=== PATIENT | male | born 1980 | race Two or more races ===

== ENCOUNTER 2016-07-03 18:17 | Emergency (ER) | payer MEDICAID ==
[~2016-07-03] VITALS: Ht 167.6 cm; Wt 78.0 kg
[2016-07-03 18:32] VITALS: BP 124/65
== END 2016-07-03 21:17 | disposition home or self-care (01) ==
LOC: ER 18:18
DX: R20.9 Unspecified disturbances of skin sensation (principal); R51 Headache
CPT/HCPCS: 70450; 99284; A4606; Z7610

== ENCOUNTER 2017-06-29 19:52 | Inpatient (IN) | payer MEDICAID ==
[~2017-06-29] VITALS: Ht 167.6 cm; Wt 83.9 kg
--- NOTE | 2017-06-29 20:12 | NUR ---
PT BIBSELF C/O LLQ ABD PAIN X 12PM TODAY. -N/V LAST BM 1 HR GLOVE OPERATOR. PT AMBULATORY TO ER BED 9 PT AOX3 RR EVEN AND UNLABORED. NO SOB NOTED. NAD NOTED. NO NVD AT THIS TIME. PT GOWNED AND PLACED ON MONITOR WAITING FOR MD GERMAIN. URINE COLLECTED.
--- NOTE | 2017-06-29 20:18 | NUR ---
PAC JAZ AT BEDSIDE
[2017-06-29] MEDS ORDERED: IV NS 0.9% 1,000 ML BAG IV ONE ×2 (20:30→22:00)
[2017-06-29] MEDS ORDERED: ONDANSETRON HCL/PF 4 MG/2 ML VIAL IVP ONE (20:30)
[2017-06-29] MEDS ORDERED: KETOROLAC TROMETHAMINE INJ 30 MG/ML VIAL IV ONE (20:30)
[2017-06-29] MEDS ORDERED: MORPHINE SULFATE INJ 2 MG/ML DISP.SYRIN IV ONE (20:30)
[2017-06-29] MEDS ORDERED: KETOROLAC TROMETHAMINE INJ 30 MG/ML VIAL ONE (20:33)
[2017-06-29] MEDS ORDERED: ONDANSETRON HCL/PF 4 MG/2 ML VIAL ONE (20:33)
[2017-06-29] MEDS ORDERED: MORPHINE SULFATE INJ 4 MG/ML DISP.SYRIN ONE (20:34)
--- NOTE | 2017-06-29 20:34 | NUR ---
PT TO CT.
[2017-06-29 20:47] LABS: APPEARANCE,URINE CLEAR (CLEAR); BILIRUBIN,URINE NEGATIVE (NEGATIVE); BLOOD, URINE NEGATIVE Ery/uL (NEGATIVE); COLOR,URINE YELLOW (YELLOW); KETONES,URINE NEGATIVE (NEGATIVE); LEUKOCYTE ESTERASE ,URINE NEGATIVE (NEGATIVE); NITRITE, URINE NEGATIVE (NEGATIVE); PROTEIN,URINE NEGATIVE (NEGATIVE); UGLUCOSE NEGATIVE (NEGATIVE); UROBILINOGEN,URINE 0.2 EU/dL (0.2)
[2017-06-29 20:55] LABS: CALCIUM, SERUM 8.7 mg/dL (8.5-10.1); POTASSIUM 3.6 mmol/L (3.5-5.1)
[2017-06-29 21:14] LABS: EOSINOPHILS % (AUTO) 0.4 % (0.0-6.0); HEMATOCRIT 43 % (39-51); HEMOGLOBIN 14.8 g/dL (13.5-17.5); LYMPHOCYTES % (AUTO) 7.9 % (20.0-44.0); MEAN CORPUSCULAR HEMOGLOBIN 30 PG (26.0-33.0); MEAN CORPUSCULAR HGB CONC 35 g/dl (31.0-36.0); MEAN CORPUSCULAR VOLUME 86 fL (80-96); MONOCYTES # (AUTO) 0.3 /CMM (0.1-1.30); MONOCYTES % (AUTO) 2.9 % (2.0-12.0); NEUTROPHILS # (AUTO) 10.8 /CMM (1.8-8.9); NEUTROPHILS % (AUTO) 88.8 % (43.0-81.0); PLATELET COUNT (AUTO) 167 /CMM (150-450); RED BLOOD CELL COUNT(AUTO) 4.96 MIL/uL (4.5-6.0); WHITE BLOOD COUNT (AUTO) 12.2 K/uL (4.3-11.0)
--- NOTE | 2017-06-29 21:57 | NUR ---
CALLED DR. OSORIO INTELLIGENCE MANAGER AT [phone]. UNABLE TO REACH. LEFT VOICEMAIL TO CALL BACK.
[2017-06-29] MEDS ORDERED: PIPERACILLIN /TAZOBACTAM 3.375 G in IV D5W 50 ML IV ONE (22:00)
--- NOTE | 2017-06-29 22:02 | NUR ---
CALLED NURSE SUP FOR MED SURG BED
--- NOTE | 2017-06-29 22:04 | NUR ---
PAGED EPIC FOR PANEL
--- NOTE | 2017-06-29 22:16 | NUR ---
206-2 [facility]
--- NOTE | 2017-06-29 22:47 | NUR ---
LAB AT BEDSIDE FOR BLOOD CX
--- NOTE | 2017-06-29 22:53 | NUR ---
CALLED DR. OSORIO ELECTRICAL SYSTEMS ENGINEER AT [phone]. UNABLE TO REACH. LEFT VOICEMAIL TO CALL BACK.
[2017-06-29] MEDS ORDERED: PIPERACILLIN /TAZOBACTAM 3.375 G VIAL IV ONE (23:09)
[2017-06-29 23:21] LABS: INR 0.98 (0.87-1.13)
--- NOTE | 2017-06-30 00:07 | NUR ---
REPORT GIVEN TO ANNABELLA SHRESTHA FOR LUCIANA.
[2017-06-30 00:13] VITALS: BP 112/62
--- NOTE | 2017-06-30 00:13 | NUR ---
MS/RN NOTES RECEIVED PT. FROM ER VIA NATALIA. PT. IS AWAKE, ALERT AND ORIENTED X4. BREATHING EVEN AND UNLABORED ON ROOM AIR. NO SOB, RESPIRATORY DISTRESS NOTED AT THIS TIME. PT. COMPLAINING OF LEFT LOWER QUADRANT ABDOMINAL PAIN 5/10 AND STATES IT HAS REALLY IMPROVED SINCE RECEIVING PAIN MEDICATION. ORIENTED PT. TO ROOM. PT. WITH LEFT AC 18 GAUGE IV SALINE LOCK PRESENT, PATENT AND INTACT. EDUCATED PT. THAT HE WILL BE NPO, PT. VERBALIZED UNDERSTANDING. BED LOCKED AND IN LOWEST POSITION, SIDE RAILS UP X2, CALL LIGHT WITHIN REACH, WILL CONTINUE TO MONITOR.
[2017-06-30] MEDS: IV NS 0.9% 1,000 ML IV PRN ×2 (00:39→17:48)
[2017-06-30] MEDS ORDERED: MAGNESIUM HYDROXIDE 30 ML UDC PO PRN (02:30)
[2017-06-30] MEDS ORDERED: Z GUARD REMEDY 2 OZ OINT TP PRN (02:30)
[2017-06-30] MEDS ORDERED: ACETAMINOPHEN 325 MG TABLET PO PRN (02:30)
[2017-06-30] MEDS ORDERED: DEXTROSE 50%-WATER 50 ML DISP.SYRIN IV PRN (02:30)
[2017-06-30] MEDS ORDERED: HYDROCODONE/APAP 5/325MG 1 EACH TABLET PO PRN (02:30)
[2017-06-30] MEDS ORDERED: ONDANSETRON HCL/PF 4 MG/2 ML VIAL IVP PRN (02:30)
[2017-06-30] MEDS ORDERED: ZOLPIDEM TARTRATE 5 MG TABLET PO PRN (02:30)
[2017-06-30 04:00] VITALS: BP 98/55
[2017-06-30] MEDS ORDERED: PIPERACILLIN /TAZOBACTAM 3.375 G VIAL IV ONE (05:42)
[2017-06-30] MEDS: BLOOD SUGAR DIAGNOSTIC 1 EACH STRIP IN SCH ×3 (06:00→17:02)
[2017-06-30] MEDS: PIPERACILLIN /TAZOBACTAM 3.375 G in IV NS 0.9% 50 ML IV SCH ×3 (06:22→17:02)
--- NOTE | 2017-06-30 06:30 | NUR ---
MS/RN NOTES UNABLE TO PERFORM 0600 ACCUCHECK ORDERED. GLUCOMETER'S NOT WORKING HOSPITAL WIDE. PT. HAS BMP ORDERED WITH AM LABS. WILL ENDORSE TO DAYSHIFT NURSE TO ASSESS PT. GLUCOSE LEVEL WHEN LABS RESULT. NO S/S OF HYPO/HYPERGLYCEMIA NOTED AT THIS TIME. WILL CONTINUE TO MONITOR.
--- NOTE | 2017-06-30 06:42 | NUR ---
MS/RN NOTES PT. IS LYING IN BED RESTING. BREATHING EVEN AND UNLABORED ON ROOM AIR. NO SOB, RESPIRATORY DISTRESS OR COMPLAINTS OF PAIN NOTED AT THIS TIME. PT. WITH LEFT AC 18 GAUGE PERIPHERAL IV PRESENT, PATENT AND INTACT ADMINISTERING TO PT. NS @ 75 ML/HR. ALL PT. NEEDS MET. BED LOCKED AND IN LOWEST POSITION, SIDE RAILS UP X2, CALL LIGHT WITHIN REACH, WILL ENDORSE TO DAYSHIFT NURSE FOR CONTINUITY OF CARE.
[2017-06-30 06:53] LABS: CALCIUM, SERUM 7.7 mg/dL (8.5-10.1); CREATININE 0.8 mg/dL (0.6-1.3); MAGNESIUM 2.1 mg/dL (1.8-2.4); PHOSPHORUS 3.3 mg/dL (2.5-4.9); POTASSIUM 3.8 mmol/L (3.5-5.1)
[2017-06-30 07:00] LABS: BASOPHILS % (AUTO) 0.2 % (0.0-2.0); EOSINOPHILS % (AUTO) 0.6 % (0.0-6.0); HEMATOCRIT 39 % (39-51); HEMOGLOBIN 13.4 g/dL (13.5-17.5); LYMPHOCYTES # (AUTO) 1.2 /CMM (0.8-4.8); LYMPHOCYTES % (AUTO) 15.3 % (20.0-44.0); MEAN CORPUSCULAR HEMOGLOBIN 30 PG (26.0-33.0); MEAN CORPUSCULAR HGB CONC 35 g/dl (31.0-36.0); MEAN CORPUSCULAR VOLUME 87 fL (80-96); MONOCYTES # (AUTO) 0.5 /CMM (0.1-1.30); MONOCYTES % (AUTO) 6.1 % (2.0-12.0); NEUTROPHILS # (AUTO) 6.2 /CMM (1.8-8.9); NEUTROPHILS % (AUTO) 77.8 % (43.0-81.0); PLATELET COUNT (AUTO) 157 /CMM (150-450); RDW COEFFICIENT OF VARIATION 14.1 (11.5-15.0); RED BLOOD CELL COUNT(AUTO) 4.47 MIL/uL (4.5-6.0)
--- NOTE | 2017-06-30 07:30 | NUR ---
RN OPEN NOTES RECEIVED REPORT FROM CHILLING HOOD OPERATOR NURSE. PATIENT IS AWAKE IN BED. PATIENT IS ALERT AND ORIENTED TO NAME PLACE AND TIME. NO SIGNS AND SYMPTOMS OF DISTRESS. DENIED PAIN. BED IN LOW POSITION, LOCKED AND TWO SIDE RAILS ARE UP. CALL LIGHT WITHIN REACH FOR SAFETY. WILL CONTINUE TO MONITOR AND ASSESS PATIENT
[2017-06-30 08:00] VITALS: BP 103/51
[2017-06-30] MEDS: PANTOPRAZOLE 40 MG VIAL IV SCH ×2 (08:19→21:38)
--- NOTE | 2017-06-30 14:40 | NUR ---
PAGED DR ZHAO REGARDING ETA TO EVALUATE PATIENT. PENDING REPLY
[2017-06-30 16:00] VITALS: BP 110/65
--- NOTE | 2017-06-30 16:06 | NUR ---
DR ZHAO CALLED BACK. PATIENT NEEDS TO STAY NPO. HE WILL BE HERE LATER ON TONIGHT TO EVALUATE PATIENT.
--- NOTE | 2017-06-30 18:31 | NUR ---
RN CLOSING NOTES PATIENT IN IN BED. ALERT AND ORIENTED TO NAME, PLACE AND TIME. FAMILY AT BEDSIDE. NO SIGNS AND SYMPTOMS OF DISTRESS. IV SITE IS INTACT AND PATENT, CURRENTLY RUNNING NS AT 75ML/HR. KEPT PATIENT CLEAN, DRY AND SAFE. NO ACUTE CHANGES DURING MY SHIFT. ALL NURSING CARE ANTICIPATED AND ATTENDED FOR. BED IN LOW POSITION, LOCKED AND TWO SIDE RAILS ARE UP. CALL LIGHT WITHIN REACH FOR SAFETY. WILL ENDORSE TO GYM SUPERVISOR RN FOR LUCIANA.
--- NOTE | 2017-06-30 19:25 | NUR ---
MS/RN NOTES RECEIVED PT. LYING IN BED RESTING. BREATHING EVEN AND UNLABORED ON ROOM AIR. NO SOB, RESPIRATORY DISTRESS OR COMPLAINTS OF PAIN NOTED AT THIS TIME. PT. WITH LEFT FOREARM 20 GAUGE PERIPHERAL IV PRESENT, PATENT AND INTACT ADMINISTERING TO PT. NS @ 75 ML/HR. PER DAYSHIFT NURSE AWAITING EVALUATION BY DR. CECE PIRES. BED LOCKED AND IN LOWEST POSITION, SIDE RAILS UP X2, CALL LIGHT WITHIN REACH, WILL CONTINUE TO MONITOR.
--- NOTE | 2017-06-30 20:16 | NUR ---
MS/RN NOTES SPOKE WITH DR. ZHAO, PER DR. ZHAO NEW ORDERS: "CHANGE IV FLUIDS TO D5 1/2 NS WITH 20MEQ KCL @120ML/HR, CBC AND BMP IN THE MORNING AND PT. IS TO REMAIN STRICT NPO, NO DIET CHANGES ARE TO BE MADE FOR THIS PATIENT". WILL CARRY OUT ORDERS. WILL CONTINUE TO MONITOR.
[2017-06-30 20:20] VITALS: BP 100/40
[2017-06-30] MEDS ORDERED: IV PREMIX D5 1/2NS + KCL 1,000 ML IV ONE (21:16)
[2017-06-30] MEDS: Potassium Chloride 20 MEQ in IV D5/0.45 NACL 1,000 ML IV PRN (21:39)
[2017-07-01] MEDS: BLOOD SUGAR DIAGNOSTIC 1 EACH STRIP IN SCH ×5 (00:21→23:25)
[2017-07-01] MEDS: PIPERACILLIN /TAZOBACTAM 3.375 G in IV NS 0.9% 50 ML IV SCH ×5 (00:21→23:26)
[2017-07-01 06:46] LABS: BASOPHILS % (AUTO) 0.3 % (0.0-2.0); EOSINOPHILS # (AUTO) 0.1 /CMM (0.0-0.7); EOSINOPHILS % (AUTO) 1.1 % (0.0-6.0); HEMATOCRIT 40 % (39-51); HEMOGLOBIN 13.6 g/dL (13.5-17.5); LYMPHOCYTES # (AUTO) 1.2 /CMM (0.8-4.8); LYMPHOCYTES % (AUTO) 16.9 % (20.0-44.0); MEAN CORPUSCULAR HEMOGLOBIN 30 PG (26.0-33.0); MEAN CORPUSCULAR HGB CONC 35 g/dl (31.0-36.0); MEAN CORPUSCULAR VOLUME 86 fL (80-96); MONOCYTES # (AUTO) 0.5 /CMM (0.1-1.30); MONOCYTES % (AUTO) 6.5 % (2.0-12.0); NEUTROPHILS # (AUTO) 5.4 /CMM (1.8-8.9); NEUTROPHILS % (AUTO) 75.2 % (43.0-81.0); PLATELET COUNT (AUTO) 161 /CMM (150-450); RDW COEFFICIENT OF VARIATION 14.1 (11.5-15.0); RED BLOOD CELL COUNT(AUTO) 4.57 MIL/uL (4.5-6.0); WHITE BLOOD COUNT (AUTO) 7.2 K/uL (4.3-11.0)
[2017-07-01 06:47] LABS: CALCIUM, SERUM 8.1 mg/dL (8.5-10.1); CREATININE 0.9 mg/dL (0.6-1.3); POTASSIUM 3.7 mmol/L (3.5-5.1)
--- NOTE | 2017-07-01 06:53 | NUR ---
MS/RN NOTES PT. IS LYING IN BED RESTING. AWAKE, ALERT AND ORIENTED X4. BREATHING EVEN AND UNLABORED ON ROOM AIR. NO SOB, RESPIRATORY DISTRESS OR COMPLAINTS OF PAIN NOTED AT THIS TIME AND THROUGHOUT SHIFT. PT. WITH LEFT FOREARM 20 GAUGE PERIPHERAL IV PRESENT, PATENT AND INTACT ADMINISTERING TO PT. D5 1/2 NS @ 120ML/HR. PT. REMAINS ON STRICT NPO. ALL PT. NEEDS MET. BED LOCKED AND IN LOWEST POSITION, SIDE RAILS UP X2, CALL LIGHT WITHIN REACH, WILL ENDORSE TO DAYSHIFT NURSE FOR CONTINUITY OF CARE.
[2017-07-01 08:00] VITALS: BP 127/68
--- NOTE | 2017-07-01 08:01 | NUR ---
MS RN: INITIAL NOTE RECEIVED PT A/OX4. MS. AMBULATORY WITH OUT ASSIST. STRICT NPO. NOTHING BT MOUTH PER MD ORDER. SKIN INTACT. L FA #2O RUNNING D5 1/2 NS WITH 20MEQ AT 120ML/HR. SITE CLEAR AND PATENT. NO REDNESS OR BLEEDING NOTED. NO DISTRESS NOTED. NO SOB NOTED. NO PAIN NOTED. RESTING COMFORTABLY IN BED. CALL LIGHT WITHIN REACH.
[2017-07-01] MEDS: PANTOPRAZOLE 40 MG VIAL IV SCH ×2 (08:44→20:58)
[2017-07-01] MEDS: Potassium Chloride 20 MEQ in IV D5/0.45 NACL 1,000 ML IV PRN ×2 (09:25→17:22)
[2017-07-01 16:00] VITALS: BP 124/64
--- NOTE | 2017-07-01 18:26 | NUR ---
MS RN: CLOSING NOTE PT TOOK ALL MEDICATIONS ON TIME. NO ADVERSE REACTIONS NOTED. A/OX4. NPO. EVERY MED GIVEN THOUGH IV. AMBULATE WITH OUT ASSIST. SKIN INTACT. L FA #20 RUNNING D5 1/2 NS 20MEQ KCL AT 120ML/HR. SITE CLEAR AND PATENT. NO PAIN NOTED. DISTRESS NOTED. NO SOB NOTED.ROUTINE ACCU CHEK. NO COVERAGE. RESTING COMFORTABLY IN BED. CALL LIGHT WITHIN REACH.
--- NOTE | 2017-07-01 19:39 | NUR ---
RN NOTE; RECEIVED PT IN BED W/ FAMILY AT THE BEDSIDE. BREATHING EVENLY. NO SOB. NAD. SKIN WARM AND DRY W/ MILD HEADACHE. DENIED ABD PAIN./ NO N/V. ON ONGOING IVF HYDRATION, IV SITE CDI. NEEDS ATTENDED. BED LOW LOCKED. CALL LIGHT WITHIN REACH. WILL CONT TO MONITOR ,
[2017-07-01 20:00] VITALS: BP 131/69
--- NOTE | 2017-07-02 00:19 | NUR ---
PT W/ C/O H/A. REMAINED NPO. ANGELY FOFANA ON THE FLOOR MADE AWARE W/ AN ORDER FOR MORPHINE . WILL CONT TO MONITOR ,
[2017-07-02] MEDS ORDERED: MORPHINE SULFATE INJ 4 MG/ML DISP.SYRIN IV PRN (00:30)
[2017-07-02] MEDS: Potassium Chloride 20 MEQ in IV D5/0.45 NACL 1,000 ML IV PRN ×3 (04:24→22:59)
[2017-07-02] MEDS: PIPERACILLIN /TAZOBACTAM 3.375 G in IV NS 0.9% 50 ML IV SCH ×4 (05:28→23:25)
[2017-07-02] MEDS: BLOOD SUGAR DIAGNOSTIC 1 EACH STRIP IN SCH ×4 (05:28→23:26)
[2017-07-02 06:49] LABS: BASOPHILS % (AUTO) 0.3 % (0.0-2.0); EOSINOPHILS # (AUTO) 0.1 /CMM (0.0-0.7); EOSINOPHILS % (AUTO) 1.7 % (0.0-6.0); HEMATOCRIT 40 % (39-51); HEMOGLOBIN 14.1 g/dL (13.5-17.5); LYMPHOCYTES # (AUTO) 1.1 /CMM (0.8-4.8); LYMPHOCYTES % (AUTO) 20.3 % (20.0-44.0); MEAN CORPUSCULAR HEMOGLOBIN 30 PG (26.0-33.0); MEAN CORPUSCULAR HGB CONC 35 g/dl (31.0-36.0); MEAN CORPUSCULAR VOLUME 86 fL (80-96); MONOCYTES # (AUTO) 0.4 /CMM (0.1-1.30); MONOCYTES % (AUTO) 8.4 % (2.0-12.0); NEUTROPHILS # (AUTO) 3.7 /CMM (1.8-8.9); NEUTROPHILS % (AUTO) 69.3 % (43.0-81.0); PLATELET COUNT (AUTO) 170 /CMM (150-450); RDW COEFFICIENT OF VARIATION 13.9 (11.5-15.0); RED BLOOD CELL COUNT(AUTO) 4.67 MIL/uL (4.5-6.0); WHITE BLOOD COUNT (AUTO) 5.3 K/uL (4.3-11.0)
--- NOTE | 2017-07-02 06:52 | NUR ---
RN NOTE; PT IN BED AWAKE AND ALERT, BREATHING EVENLY. NO ACUTE EVENT DURING THE NIGHT . NO C/O PAIN OR DISCOMFORT. NO EPISODE OF HYPO OR HYPERGLYCEMIA. ON ONGOING IVF HYDRATION . REMAINED NPO. NEED ATTENDED . CALL LIGHT WITHIN REACH, WILL CONT TO MONITOR AND WILL ENDORSE TO AM SHIFT FOR LUCIANA.
[2017-07-02 06:55] LABS: CALCIUM, SERUM 8.4 mg/dL (8.5-10.1); CREATININE 0.9 mg/dL (0.6-1.3); POTASSIUM 3.8 mmol/L (3.5-5.1)
--- NOTE | 2017-07-02 07:39 | NUR ---
MS RN: INITIAL NOTE RECEIVED PT A/OX4. ON MS. AMBULATES WITH OUT ASSIST. CONTINENT. NPO. STRICT NPO. LFA #20 RUNNING D5 1/2 +20MEQ KCL AT 120ML/HR. SITE CLEAR AND PATENT. NO DISTRESS NOTED. NO SOB NOTED. NO PAIN NOTED. RESTING COMFORTABLY IN BED.CALL LIGHT WITHIN REACH.
[2017-07-02 08:00] VITALS: BP 110/59
[2017-07-02] MEDS: PANTOPRAZOLE 40 MG VIAL IV SCH ×2 (08:57→21:01)
[2017-07-02 16:00] VITALS: BP 120/64
--- NOTE | 2017-07-02 18:29 | NUR ---
MS RN: CLOSING NOTE PT TOOK ALL MEDICATIONS ON TIME. NO ADVERSE REACTIONS NOTED. NO SOB NOTED. NO PAIN NOTED. NO DISTRESS NOTED. ALL MEDIATIONS GIVEN VIA IV. STRICT NPO PER MD CECE MORRIS. A/OX4. MS. CONTINENT. AMBULATES WITH OUT ASSIST. L FA #20 RUNNING D5 1/2 NS+20 MEQ KCL @120 ML/HR. SITE CLEAR AND PATENT. NO REDNESS OR BLEEDING NOTED. RESTING COMFORTABLY IN BED. CALL LIGHT WITHIN REACH.
--- NOTE | 2017-07-02 19:40 | NUR ---
MS RN NOTES RECEIVED ON BED A/O X4,SPEAK CAPE VERDEAN,UNDERSTAND SYRIAC,GARTH PAIN AT THE MOMENT.PRESENT IVF WITH 20MEQ KCL IN PROGRESS AT 120ML/HR RATE,SITE PATENT LFA.NPO STATUS.VISITORS IN THE ROOM.CALL LIGHT IN REACH,NEEDS ANTICIPATED.
[2017-07-02 20:21] VITALS: BP 132/84
[2017-07-02 22:10] VITALS: BP 132/84
--- NOTE | 2017-07-02 23:00 | NUR ---
MS RN NOTES MD VISIT SEEN BY DR ZHAO,PLAN TO PUT PATIENT ON CLEAR LIQUID THIS MORNING,CONTINUE TO FULL LIQUID AND CONTINUE IV ABX NOTED AND CARRIED OUT.
--- NOTE | 2017-07-03 | NUR ---
MS RN NOTES ACCU-CHECK BLOOD SUGAR CHECK 92,NO INSULIN COVERAGE.
[2017-07-03] MEDS: PIPERACILLIN /TAZOBACTAM 3.375 G in IV NS 0.9% 50 ML IV SCH ×4 (05:23→23:35)
[2017-07-03] MEDS: BLOOD SUGAR DIAGNOSTIC 1 EACH STRIP IN SCH ×3 (05:23→17:27)
--- NOTE | 2017-07-03 05:30 | NUR ---
MS RN NOTES ACCU-CHECK BLOOD SUGAR CHECK 107,NO INSULIN COVERAGE
--- NOTE | 2017-07-03 06:22 | NUR ---
MS RN NOTES DISPLAY NO PAIN DISCOMFORTS AT NOC.IVF INFUSING WELL ON LEFT ARM.TO START ON CLEAR LIQUID THIS MORNING ORDERED.DUE MEDS ADMINISTERED.CALL LIGHT IN REACH,NEEDS ATTENDED.WILL ENDORSE TO DAY NURSE FOR LUCIANA.
--- NOTE | 2017-07-03 07:30 | NUR ---
RN MS NOTES PT IN BED, AWAKE, ALERT AND ORIENTED, DENIES PAIN, RESPIRATIONS NORMAL AND NOT LABORED, NO NAUSEA OR VOMITING, CALL LIGHT WITHIN REACH, IV FLUIDS INFUSING WELL, NEEDS ATTENDED.
[2017-07-03 08:00] VITALS: BP 109/69
[2017-07-03] MEDS: PANTOPRAZOLE 40 MG VIAL IV SCH ×2 (09:37→20:46)
--- NOTE | 2017-07-03 13:00 | NUR ---
RN MS NOTES PT IN BED, AWAKE, ALERT AND ORIENTED, NO COMPLAINT OF PAIN, BREATHING PATTERN NORMAL, PT WATCHING TV, CALL LIGHT WITHIN REACH, IV FLUIDS INFUSING WELL, NEEDS ATTENDED.
[2017-07-03] MEDS: Potassium Chloride 20 MEQ in IV D5/0.45 NACL 1,000 ML IV PRN ×2 (13:27→23:40)
[2017-07-03 16:00] VITALS: BP 105/60
--- NOTE | 2017-07-03 18:14 | NUR ---
RN MS NOTES PT IN BED, AWAKE, ALERT AND ORIENTED, DENIES PAIN OR ANY DISCOMFORT, NO EPISODE OF NAUSEA, VOMITING OR DIARRHEA, TOLERATING CURRENT DIET WELL, VISITED BY FAMILY, SEEN BY FLORI NESBITT, PLAN OF CARE DISCUSSED WITH PT, VERBALIZED UNDERSTANDING, IV FLUIDS INFUSING WELL, CALL LIGHT WITHIN REACH, ALL NEEDS ATTENDED.
--- NOTE | 2017-07-03 19:35 | NUR ---
MS RN NOTES ON BED A/O X4,BREATHING REGULAR,NO PAIN,IVF INFUSING WITH 20MEQ KCL AT 120ML/HR RATE,SITE PATENT LFA.VISITOR AT BEDSIDE.CALL LIGHT IN REACH,NEEDS ANTICIPATED.
[2017-07-03 20:00] VITALS: BP 116/83
[2017-07-03 22:00] VITALS: BP 116/83
--- NOTE | 2017-07-04 | NUR ---
MS RN NOTES ACCU-CHECK BLOOD SUGAR CHECK 96.NO INSULIN COVERAGE
[2017-07-04] MEDS: BLOOD SUGAR DIAGNOSTIC 1 EACH STRIP IN SCH ×3 (00:19→12:24)
--- NOTE | 2017-07-04 05:30 | NUR ---
MS RN NOTES ACCU-CHECK BLOOD SUGAR CHECK 87,NO INSULIN COVERAGE
[2017-07-04] MEDS: PIPERACILLIN /TAZOBACTAM 3.375 G in IV NS 0.9% 50 ML IV SCH ×2 (05:42→12:20)
[2017-07-04 06:55] LABS: BASOPHILS % (AUTO) 0.4 % (0.0-2.0); EOSINOPHILS # (AUTO) 0.2 /CMM (0.0-0.7); EOSINOPHILS % (AUTO) 3.4 % (0.0-6.0); HEMATOCRIT 41 % (39-51); HEMOGLOBIN 13.9 g/dL (13.5-17.5); LYMPHOCYTES # (AUTO) 1.3 /CMM (0.8-4.8); LYMPHOCYTES % (AUTO) 24.7 % (20.0-44.0); MEAN CORPUSCULAR HEMOGLOBIN 30 PG (26.0-33.0); MEAN CORPUSCULAR HGB CONC 34 g/dl (31.0-36.0); MEAN CORPUSCULAR VOLUME 86 fL (80-96); MONOCYTES # (AUTO) 0.4 /CMM (0.1-1.30); MONOCYTES % (AUTO) 7.5 % (2.0-12.0); NEUTROPHILS # (AUTO) 3.4 /CMM (1.8-8.9); PLATELET COUNT (AUTO) 191 /CMM (150-450); RDW COEFFICIENT OF VARIATION 13.5 (11.5-15.0); WHITE BLOOD COUNT (AUTO) 5.3 K/uL (4.3-11.0)
--- NOTE | 2017-07-04 06:58 | NUR ---
MS RN NOTES SLEPT WELL AT NIGHT.NO PAIN,IVF IN PROGRESS.MEDS ADMINISTERED.NEEDS ATTENDED.WILL ENDORSE TO DAY NURSE FOR LUCIANA.
[2017-07-04 07:15] LABS: CALCIUM, SERUM 8.6 mg/dL (8.5-10.1); CREATININE 0.9 mg/dL (0.6-1.3); POTASSIUM 3.9 mmol/L (3.5-5.1)
--- NOTE | 2017-07-04 07:30 | NUR ---
RN MS NOTES PT IN BED, SLEEPING COMFORTABLY, EASILY AROUSABLE, NO COMPLAINT OF PAIN OR ANY DISCOMFORT, RESPIRATIONS NORMAL AND NOT LABORED, IV FLUIDS INFUSING WELL, CALL LIGHT WITHIN REACH.
[2017-07-04 08:00] VITALS: BP 111/59
[2017-07-04] MEDS: PANTOPRAZOLE 40 MG VIAL IV SCH (09:18)
[2017-07-04] MEDS ORDERED: CIPR500T5 PO (11:43)
[2017-07-04] MEDS ORDERED: METR500T PO (11:43)
--- NOTE | 2017-07-04 13:00 | NUR ---
RN MS NOTES PT IN BED, AWAKE, ALERT AND ORIENTED, NO COMPLAINT OF PAIN, NOT IN DISTRESS, SEEN BY FLORI NESBITT, PLAN OF CARE DISCUSSED WITH PT, VERBALIZED UNDERSTANDING, PT TOLERATING CURRENT DIET, DISCHARGE ORDER GIVEN.
[2017-07-04] MEDS: Potassium Chloride 20 MEQ in IV D5/0.45 NACL 1,000 ML IV PRN (14:12)
[2017-07-04 16:00] VITALS: BP 113/65
--- NOTE | 2017-07-04 17:00 | NUR ---
RN MS NOTES PT SITTING IN CHAIR, DENIES PAIN, NOT IN DISTRESS, NO NAUSEA, VOMITING OR DIARRHEA, TOLERATING SOFT DIET, DISCHARGE AND MEDICATION INSTRUCTIONS PROVIDED TO PT AND , VERBALIZED UNDERSTANDING, PRESCRIPTION GIVEN TO PT, BELONGINGS ACCOUNTED FOR, LEFT WITH FAMILY IN STABLE CONDITION.
== END 2017-07-04 18:52 | disposition home or self-care (01) | DRG 720 ==
LOC: ER 19:55 → MEDSG2 06-30 00:10
PROVIDERS: ADMIT Nurse Practitioner Acute Care; ATTEND Nurse Practitioner Acute Care
DX: A41.9 Sepsis, unspecified organism (principal); N17.0 Acute kidney failure with tubular necrosis; K76.0 Fatty (change of) liver, not elsewhere classified; I10 Essential (primary) hypertension; K57.20 Diverticulitis of large intestine with perforation and abscess without bleeding
CPT/HCPCS: 36415; 71045-TC; 80048-TC; 80061-TC; 81000-TC; 82962-TC; 83605-TC; 83735-TC; 84100-TC; 85025-TC; 85730-TC; 87040-TC; 87081-TC; A4216; A4606; C9113; J1885; J2270; J2405; J2543; J3480; J3490; J7030; J7040; J7060; Z7610

== ENCOUNTER 2017-07-14 14:03 | Inpatient (IN) | payer MEDICAID ==
[~2017-07-14] VITALS: Ht 167.6 cm; Wt 81.6 kg
[~2017-07-14 14:03] MED LIST: CIPR500T5 PO; METR500T PO
[2017-07-14 14:58] LABS: BASOPHILS # (AUTO) 0.1 /CMM (0.0-0.2); BASOPHILS % (AUTO) 0.6 % (0.0-2.0); EOSINOPHILS % (AUTO) 0.3 % (0.0-6.0); HEMATOCRIT 47 % (39-51); HEMOGLOBIN 16.1 g/dL (13.5-17.5); LYMPHOCYTES % (AUTO) 9.2 % (20.0-44.0); MEAN CORPUSCULAR HEMOGLOBIN 29 PG (26.0-33.0); MEAN CORPUSCULAR HGB CONC 35 g/dl (31.0-36.0); MEAN CORPUSCULAR VOLUME 84 fL (80-96); MONOCYTES # (AUTO) 0.4 /CMM (0.1-1.30); MONOCYTES % (AUTO) 3.8 % (2.0-12.0); NEUTROPHILS # (AUTO) 9.7 /CMM (1.8-8.9); NEUTROPHILS % (AUTO) 86.1 % (43.0-81.0); PLATELET COUNT (AUTO) 219 /CMM (150-450); RDW COEFFICIENT OF VARIATION 13.1 (11.5-15.0); RED BLOOD CELL COUNT(AUTO) 5.51 MIL/uL (4.5-6.0); WHITE BLOOD COUNT (AUTO) 11.2 K/uL (4.3-11.0)
[2017-07-14] MEDS ORDERED: IV NS 0.9% 1,000 ML BAG IV ONE (15:00)
[2017-07-14] MEDS ORDERED: KETOROLAC TROMETHAMINE INJ 30 MG/ML VIAL IV ONE (15:00)
[2017-07-14 15:07] LABS: CREATININE 0.9 mg/dL (0.6-1.3); POTASSIUM 3.8 mmol/L (3.5-5.1)
[2017-07-14 15:13] LABS: ALBUMIN 3.9 g/dL (3.4-5.0); BILIRUBIN,TOTAL 0.5 mg/dL (0.2-1.0); TOTAL PROTEIN, SERUM 7.6 g/dL (6.4-8.2)
[2017-07-14] MEDS ORDERED: KETOROLAC TROMETHAMINE 15 MG/ML VIAL ONE (15:16)
[2017-07-14] MEDS ORDERED: IOHEXOL-300 100 ML VIAL IV ONE ×2 (15:17→15:32)
[2017-07-14] MEDS ORDERED: IV NS 0.9% 250 ML IV ONE ×2 (15:17→15:32)
[2017-07-14 15:26] LABS: APPEARANCE,URINE Clear (CLEAR); BILIRUBIN,URINE Negative (NEGATIVE); BLOOD, URINE Negative Ery/uL (NEGATIVE); COLOR,URINE Yellow (YELLOW); KETONES,URINE Negative (NEGATIVE); LEUKOCYTE ESTERASE ,URINE Trace (NEGATIVE); NITRITE, URINE Negative (NEGATIVE); PH,URINE 6.5 (5.0-8.0); PROTEIN,URINE Negative (NEGATIVE); UGLUCOSE Negative (NEGATIVE); UROBILINOGEN,URINE 0.2 EU/dL (0.2)
[2017-07-14 15:42] LABS: BACTERIA,URINE None seen /HPF (None Seen); RBC,URINE NONE SEEN /HPF (0-2); SQUAMOUS EPITHELIAL CELL,UR Few /HPF (None Seen); WBC,URINE 0-2 /HPF (0-3)
[2017-07-14] MEDS ORDERED: MORPHINE SULFATE INJ 4 MG/ML DISP.SYRIN ONE (16:30)
[2017-07-14] MEDS ORDERED: MORPHINE SULFATE INJ 2 MG/ML DISP.SYRIN IV ONE (17:00)
[2017-07-14] MEDS ORDERED: ONDANSETRON HCL/PF - ER 4 MG/2 ML VIAL IV ONE (17:00)
[2017-07-14] MEDS ORDERED: PIPERACILLIN /TAZOBACTAM 3.375 G in IV D5W 50 ML IV ONE (17:30)
[2017-07-14] MEDS ORDERED: ACETAMINOPHEN 325 MG TABLET PO PRN (19:00)
[2017-07-14] MEDS ORDERED: ZOLPIDEM TARTRATE 5 MG TABLET PO PRN (19:00)
[2017-07-14] MEDS ORDERED: MAG HYDROX/AL HYDROX/SIMETH 30 ML UDC PO PRN (19:00)
[2017-07-14] MEDS ORDERED: Z GUARD REMEDY 2 OZ OINT TP PRN (19:00)
[2017-07-14] MEDS ORDERED: MORPHINE SULFATE INJ 2 MG/ML DISP.SYRIN IV PRN (19:00)
[2017-07-14] MEDS ORDERED: MAGNESIUM HYDROXIDE 30 ML UDC PO PRN (19:00)
[2017-07-14 19:20] VITALS: BP 126/87
[2017-07-14 20:00] VITALS: BP 126/87
[2017-07-14] MEDS: IV NS 0.9% 1,000 ML IV PRN (20:05)
[2017-07-14] MEDS: HYDROCODONE/APAP 5/325MG 1 EACH TABLET PO PRN (21:54)
[2017-07-14] MEDS ORDERED: METRONIDAZOLE 500MG/ NS 100ML 100 ML IV ONE (22:06)
[2017-07-14] MEDS: METRONIDAZOLE 500MG/ NS 100ML 500 MG in PREMIX 1 EA IV SCH (22:11)
[2017-07-14] MEDS ORDERED: CIPROFLOXACIN IV RTU 200 ML IV ONE (22:21)
[2017-07-14] MEDS: CIPROFLOXACIN IV RTU 400 MG in PREMIX 1 EA IV SCH (23:30)
[2017-07-15] MEDS: ONDANSETRON HCL/PF 4 MG/2 ML VIAL IVP PRN ×2 (00:45→08:02)
[2017-07-15] MEDS: HYDROCODONE/APAP 5/325MG 1 EACH TABLET PO PRN ×4 (01:31→22:04)
[2017-07-15] MEDS ORDERED: METRONIDAZOLE 500MG/ NS 100ML 100 ML IV ONE (04:51)
[2017-07-15] MEDS: METRONIDAZOLE 500MG/ NS 100ML 500 MG in PREMIX 1 EA IV SCH (05:27)
[2017-07-15 06:59] LABS: CALCIUM, SERUM 8.1 mg/dL (8.5-10.1); CREATININE 0.8 mg/dL (0.6-1.3); MAGNESIUM 1.8 mg/dL (1.8-2.4); PHOSPHORUS 3.8 mg/dL (2.5-4.9); POTASSIUM 3.7 mmol/L (3.5-5.1)
[2017-07-15 07:13] LABS: BASOPHILS % (AUTO) 0.3 % (0.0-2.0); EOSINOPHILS % (AUTO) 0.1 % (0.0-6.0); HEMATOCRIT 40 % (39-51); HEMOGLOBIN 13.8 g/dL (13.5-17.5); LYMPHOCYTES # (AUTO) 1.4 /CMM (0.8-4.8); LYMPHOCYTES % (AUTO) 14.6 % (20.0-44.0); MEAN CORPUSCULAR HEMOGLOBIN 29 PG (26.0-33.0); MEAN CORPUSCULAR HGB CONC 34 g/dl (31.0-36.0); MEAN CORPUSCULAR VOLUME 86 fL (80-96); MONOCYTES # (AUTO) 0.6 /CMM (0.1-1.30); MONOCYTES % (AUTO) 6.9 % (2.0-12.0); NEUTROPHILS # (AUTO) 7.4 /CMM (1.8-8.9); NEUTROPHILS % (AUTO) 78.1 % (43.0-81.0); PLATELET COUNT (AUTO) 187 /CMM (150-450); RDW COEFFICIENT OF VARIATION 13.8 (11.5-15.0); WHITE BLOOD COUNT (AUTO) 9.5 K/uL (4.3-11.0)
[2017-07-15 08:00] VITALS: BP 111/61
[2017-07-15] MEDS: CIPROFLOXACIN IV RTU 400 MG in PREMIX 1 EA IV SCH ×2 (09:13→20:09)
[2017-07-15] MEDS: IV NS 0.9% 1,000 ML IV PRN ×2 (10:49→23:09)
[2017-07-15] MEDS: METRONIDAZOLE 500 MG TABLET PO SCH ×2 (13:23→20:09)
[2017-07-15 20:00] VITALS: BP 118/69
[2017-07-16] MEDS: METRONIDAZOLE 500 MG TABLET PO SCH ×2 (04:13→12:30)
[2017-07-16 07:21] LABS: BASOPHILS % (AUTO) 0.4 % (0.0-2.0); EOSINOPHILS # (AUTO) 0.1 /CMM (0.0-0.7); EOSINOPHILS % (AUTO) 0.7 % (0.0-6.0); HEMATOCRIT 37 % (39-51); HEMOGLOBIN 12.9 g/dL (13.5-17.5); LYMPHOCYTES # (AUTO) 1.2 /CMM (0.8-4.8); LYMPHOCYTES % (AUTO) 14.9 % (20.0-44.0); MEAN CORPUSCULAR HEMOGLOBIN 30 PG (26.0-33.0); MEAN CORPUSCULAR HGB CONC 35 g/dl (31.0-36.0); MEAN CORPUSCULAR VOLUME 86 fL (80-96); MONOCYTES # (AUTO) 0.6 /CMM (0.1-1.30); PLATELET COUNT (AUTO) 177 /CMM (150-450); RDW COEFFICIENT OF VARIATION 14.1 (11.5-15.0); RED BLOOD CELL COUNT(AUTO) 4.33 MIL/uL (4.5-6.0); WHITE BLOOD COUNT (AUTO) 7.9 K/uL (4.3-11.0)
[2017-07-16 07:38] LABS: CALCIUM, SERUM 7.9 mg/dL (8.5-10.1); CREATININE 0.8 mg/dL (0.6-1.3); MAGNESIUM 1.9 mg/dL (1.8-2.4); PHOSPHORUS 3.1 mg/dL (2.5-4.9); POTASSIUM 3.7 mmol/L (3.5-5.1)
[2017-07-16 08:00] VITALS: BP 108/64
[2017-07-16] MEDS: CIPROFLOXACIN IV RTU 400 MG in PREMIX 1 EA IV SCH (08:45)
[2017-07-16] MEDS ORDERED: HYDR-3972 PO (09:53)
[2017-07-16] MEDS ORDERED: DOCU-141 PO (10:04)
== END 2017-07-16 14:50 | disposition home or self-care (01) | DRG 244 ==
LOC: ER 14:04 → MED 18:47
PROVIDERS: ADMIT Internal Medicine; ATTEND Internal Medicine
DX: K57.32 Diverticulitis of large intestine without perforation or abscess without bleeding (principal); K76.0 Fatty (change of) liver, not elsewhere classified; E87.1 Hypo-osmolality and hyponatremia; D72.829 Elevated white blood cell count, unspecified; K21.9 Gastro-esophageal reflux disease without esophagitis
CPT/HCPCS: 36415; 80048-TC; 80053-TC; 81000-TC; 83690-TC; 83735-TC; 84100-TC; 85025-TC; 87081-TC; A4216; A4606; J0744; J1885; J2270; J2405; J2543; J3490; J7030; J7042; J7050; J7060; Q9967; Z7610

== ENCOUNTER 2018-12-31 17:08 | Inpatient (IN) | payer MEDICAID ==
[~2018-12-31] VITALS: Ht 165.1 cm; Wt 78.6 kg
[~2018-12-31 17:08] MED LIST changes: +DOCU-141 PO; +HYDR-3972 PO
--- NOTE | 2018-12-31 17:35 | NUR ---
PATIENT ARRIVED AT UNIT AMBULATORY WITH C/O LLQ ABDOMINAL PAIN/BLOATING SINCE 12/21/18 DX DIVERTICULITIS AT [facility]. REPORTED HE WAS PRECRIBED AND FINISHED ANTIBIOTIC TX BUT WITH RELIEF. RESTING ON BED. WILL CONTINUE TO MONITOR
[2018-12-31 17:47] LABS: BASOPHILS % (AUTO) 0.7 % (0.0-2.0); HEMATOCRIT 45 % (39-51); HEMOGLOBIN 15.3 g/dL (13.5-17.5); LYMPHOCYTES % (AUTO) 19.6 % (20.0-44.0); MEAN CORPUSCULAR HGB CONC 34 g/dl (31.0-36.0); MEAN CORPUSCULAR VOLUME 88 fL (80-96); NEUTROPHILS % (AUTO) 71.7 % (43.0-81.0); PLATELET COUNT (AUTO) 318 /CMM (150-450); RED BLOOD CELL COUNT(AUTO) 5.13 MIL/uL (4.5-6.0); WHITE BLOOD COUNT (AUTO) 7.5 K/uL (4.3-11.0)
[2018-12-31 17:48] LABS: LYMPHOCYTES # (AUTO) 1.5 /CMM (0.8-4.8); MONOCYTES # (AUTO) 0.5 /CMM (0.1-1.30); NEUTROPHILS # (AUTO) 5.4 /CMM (1.8-8.9)
--- NOTE | 2018-12-31 17:48 | NUR ---
IV LINE ESTABLISHED, BLOOD DRAWN AND SENT TO LAB
[2018-12-31 17:54] LABS: CALCIUM, SERUM 9.5 mg/dL (8.5-10.1); CARBON DIOXIDE 30 mmol/L (21-32); CHLORIDE 102 mmol/L (98-107); CREATININE 0.9 mg/dL (0.6-1.3); GLUCOSE 110 mg/dL (74-106); POTASSIUM 4.2 mmol/L (3.5-5.1); SODIUM SERUM 140 mmol/L (136-145); UREA NITROGEN, BLOOD 9 mg/dL (7-18)
[2018-12-31] MEDS ORDERED: IV NS 0.9% 1,000 ML BAG IV ONE (18:00)
[2018-12-31] MEDS ORDERED: ONDANSETRON HCL/PF 4 MG/2 ML VIAL IVP ONE (18:00)
[2018-12-31] MEDS ORDERED: MORPHINE SULFATE INJ 2 MG/ML DISP.SYRIN IV ONE (18:00)
[2018-12-31] MEDS ORDERED: ONDANSETRON HCL/PF 4 MG/2 ML VIAL ONE (18:02)
[2018-12-31] MEDS ORDERED: MORPHINE SULFATE INJ 4 MG/ML DISP.SYRIN ONE (18:03)
[2018-12-31 18:06] LABS: ALANINE AMINOTRANSFERASE 53 U/L (12-78); ALBUMIN 3.9 g/dL (3.4-5.0); ALKALINE PHOSPHATASE 79 U/L (46-116); ASPARTATE AMINOTRANSFERASE 22 U/L (15-37); BILIRUBIN,DIRECT 0.1 mg/dL (0.0-0.2); BILIRUBIN,TOTAL 0.3 mg/dL (0.2-1.0); LIPASE 103 U/L (73-393); TOTAL PROTEIN, SERUM 7.8 g/dL (6.4-8.2)
[2018-12-31 18:14] LABS: APPEARANCE,URINE Clear (CLEAR); BILIRUBIN,URINE Negative (NEGATIVE); BLOOD, URINE Negative Ery/uL (NEGATIVE); COLOR,URINE Yellow (YELLOW); KETONES,URINE Negative (NEGATIVE); LEUKOCYTE ESTERASE ,URINE Negative (NEGATIVE); NITRITE, URINE Negative (NEGATIVE); PROTEIN,URINE Negative (NEGATIVE); UGLUCOSE Negative (NEGATIVE); UROBILINOGEN,URINE 0.2 EU/dL (0.2)
[2018-12-31] MEDS ORDERED: IOHEXOL-300 100 ML VIAL IV ONE ×2 (18:22→18:24)
[2018-12-31] MEDS ORDERED: CT SWABBABLE VALVE TRANS SET 1 EA INFUS.SET MC ONE (18:23)
[2018-12-31] MEDS ORDERED: IV NS 0.9% 250 ML IV ONE (18:23)
[2018-12-31] MEDS ORDERED: PIPERACILLIN /TAZOBACTAM 3.375 G in IV D5W 50 ML IV ONE (19:00)
--- NOTE | 2018-12-31 19:08 | NUR ---
TURNED IN MOVE SHEET
--- NOTE | 2018-12-31 19:14 | NUR ---
PT RECEIVED FROM ANNABELLA MONTAGUE FOR LUCIANA
--- NOTE | 2018-12-31 19:20 | NUR ---
PATIENT RESTING COMFORTABLY ON BED. NO CHANGES IN LOC NOTED. DENIES ANY PAIN OR DISCOMFORT. NO ACUTE DISTRESS. ENDORSED TO ADITYA [place] FOR LUCIANA
--- NOTE | 2018-12-31 19:30 | NUR ---
CALLED FOR BED
--- NOTE | 2018-12-31 20:21 | NUR ---
BED 320-2
--- NOTE | 2018-12-31 20:22 | NUR ---
PAGED CRISIS COUNSELOR FADY TOPETE
[2018-12-31] MEDS ORDERED: Z GUARD REMEDY 2 OZ OINT TP PRN (20:30)
[2018-12-31] MEDS ORDERED: MORPHINE SULFATE INJ 2 MG/ML DISP.SYRIN IV PRN (20:30)
[2018-12-31] MEDS ORDERED: MAG HYDROX/AL HYDROX/SIMETH 30 ML UDC PO PRN (20:30)
[2018-12-31] MEDS ORDERED: HYDROCODONE/APAP 5/325MG 1 EACH TABLET PO PRN (20:30)
[2018-12-31] MEDS ORDERED: ONDANSETRON HCL/PF 4 MG/2 ML VIAL IVP PRN (20:30)
[2018-12-31] MEDS ORDERED: ACETAMINOPHEN 325 MG TABLET PO PRN (20:30)
[2018-12-31] MEDS ORDERED: MAGNESIUM HYDROXIDE 30 ML UDC PO PRN (20:30)
--- NOTE | 2018-12-31 20:54 | NUR ---
REPORT GIVEN TO ANNABELLA MILLAN FOR LUCIANA. PT TO 320-2
--- NOTE | 2018-12-31 21:20 | NUR ---
PT BEING TRANSPORTED TO UNIT ON [facility] WITH EMT AT BEDSIDE. PT IS STABLE FOR TRANSPORT.
--- NOTE | 2018-12-31 21:20 | NUR ---
MS RN NOTE RECEIVED PATIENT VIA GURNEY. PATIENT AMBULATED TO BED. A/O X4. TOLERATING ROOM AIR. RESPIRATIONS ARE EVEN AND UNLABORED. NO SIGNS OF SOB NOTED. VERBALIZED PAIN IN LOWER LEFT QUADRANT OF ABDOMEN BUT STATES IT IS TOLERABLE AND DOES NOT WANT PAIN MEDICATION AT THIS TIME. IV ACCESS IN RIGHT FA GAUGE 18 PATENT AND SALINE LOCKED. INITIAL PHYSICAL ASSESSMENT COMPLETED. SKIN ASSESSMENT COMPLETED AND PICTURES TAKEN AND PLACED IN CHART. BELONGINGS LIST DONE BY FACTORY EXPERT. ORIENTED PATIENT TO ROOM AND ABOUT POC. BED IS LOW AND LOCKED, SIDE RAILS UPX2, HOB ELEVATED 30 DEGREES. CALL LIGHT WITHIN REACH. FAMILY AT THE BEDSIDE. WILL CONTINUE TO MONITOR.
[2018-12-31 21:25] VITALS: BP 118/69
[2018-12-31] MEDS: IV NS 0.9% 1,000 ML IV PRN (22:15)
[2018-12-31 23:08] VITALS: BP 118/69
[2019-01-01 06:29] LABS: BASOPHILS % (AUTO) 0.5 % (0.0-2.0); EOSINOPHILS % (AUTO) 1.5 % (0.0-6.0); HEMATOCRIT 42 % (39-51); HEMOGLOBIN 14.3 g/dL (13.5-17.5); LYMPHOCYTES # (AUTO) 1.3 /CMM (0.8-4.8); MEAN CORPUSCULAR HGB CONC 34 g/dl (31.0-36.0); MEAN CORPUSCULAR VOLUME 87 fL (80-96); MONOCYTES # (AUTO) 0.4 /CMM (0.1-1.30); MONOCYTES % (AUTO) 5.7 % (2.0-12.0); NEUTROPHILS # (AUTO) 5.4 /CMM (1.8-8.9); NEUTROPHILS % (AUTO) 74.3 % (43.0-81.0); PLATELET COUNT (AUTO) 273 /CMM (150-450); RED BLOOD CELL COUNT(AUTO) 4.77 MIL/uL (4.5-6.0); WHITE BLOOD COUNT (AUTO) 7.3 K/uL (4.3-11.0)
--- NOTE | 2019-01-01 06:33 | NUR ---
MS RN CLOSING NOTE PATIENT IS RESTING IN BED. A/O X4. TOLERATING ROOM AIR. RESPIRATIONS ARE EVEN AND UNLABORED. NO SIGNS OF SOB NOTED THROUGHOUT SHIFT. NO COMPLAINTS OF PAIN THORUGHOUT SHIFT. IV ACCESS MAINTAINED IN RIGHT FA GAUGE 18 RUNNING NS@75ML/HR. NPO STATUS MAINTAINED. ALL NURSING NEEDS MET. NO DISTRESS NOTED THROUGHOUT SHIFT. BED IS LOW AND LOCKED, SIDE RAILS UPX2, HOB ELEVATED 30 DEGREES. CALL LIGHT WITHIN REACH. WILL ENDORSE TO NEXT SHIFT FOR LUCIANA
[2019-01-01 07:15] LABS: CALCIUM, SERUM 8.2 mg/dL (8.5-10.1); CREATININE 0.9 mg/dL (0.6-1.3); MAGNESIUM 2.1 mg/dL (1.8-2.4); PHOSPHORUS 4.3 mg/dL (2.5-4.9)
--- NOTE | 2019-01-01 07:30 | NUR ---
RN OPENING NOTE PT WAS RECEIVED IN BED AT LOWEST AND LOCKED POSITION WITH SIDE RAILS UP X2, A/O 4 BREATHING EVEN AND UNLABORED ON RA, AMBULATORY, NO S/S OF ANY DISTRESS OR PAIN AT THIS TIME, IV IS PATENT AND INTACT, CURRENTLY NPO, IV IS PATENT AND INTACT WITH IVF RUNNING, AWAITING RESULTS FOR ABD/PELVIS CT, SAFETY PRECAUTIONS IN PLACE, CALL LIGHT WITHIN REACH, WILL MONITOR PT ACCORDINGLY
[2019-01-01 08:00] VITALS: BP 116/69
[2019-01-01] MEDS ORDERED: ZOSYN IVPB 3.375 G in IV D5W 50ml IV ONE (08:30)
[2019-01-01] MEDS: DOCUSATE SODIUM 100 MG CAPSULE PO SCH ×2 (08:44→16:01)
[2019-01-01] MEDS: NEXIUM 40 MG VIAL IV SCH (08:47)
[2019-01-01] MEDS ORDERED: PIPERACILLIN /TAZOBACTAM 4.5 G in IV D5W 50 ML IV ONE (09:00)
[2019-01-01] MEDS ORDERED: PANTOPRAZOLE 40 MG VIAL IV SCH (09:00)
--- NOTE | 2019-01-01 09:00 | NUR ---
RN NOTE PT SHOWERED AT THIS TIME
[2019-01-01] MEDS: PIPERACILLIN /TAZOBACTAM 3.375 G in IV D5W 100 ML IV SCH ×2 (12:00→20:05)
[2019-01-01] MEDS: IV NS 0.9% 1,000 ML IV PRN (12:00)
[2019-01-01 16:09] VITALS: BP 151/80
--- NOTE | 2019-01-01 18:39 | NUR ---
RN CLOSING NOTE PT IN BED AT LOWEST AND LOCKED POSITION WITH SIDE RAILS UP X2, A/O 4 BREATHING EVEN AND UNLABORED ON RA WITH NO DISTRESS OR PAIN AT THIS TIME, IV IS PATENT AND INTACT,, SAFETY PRECAUTIONS IN PLACE, CALL LIGHT WITHIN REACH, ALL NEEDS ATTENDED TO, WILL ENDORSE TO NIGHT RN FOR LUCIANA
--- NOTE | 2019-01-01 19:00 | NUR ---
MS RN OPENING NOTES Patient received in bed, asleep, easy to arouse. Familt at bedside. Breathing even and unlabored. Not in any distress. Peripheral IV infusing at 75mL/hr. Safety measures in place, call light within reach, bed in low, locked position. Will continue to monitor accordingly
[2019-01-01 20:00] VITALS: BP 108/66
[2019-01-02] MEDS: PIPERACILLIN /TAZOBACTAM 3.375 G in IV D5W 100 ML IV SCH ×3 (04:21→21:28)
--- NOTE | 2019-01-02 06:32 | NUR ---
MS RN CLOSING NOTES Patient still sleeping in bed, easy to arouse. Breathing even and unlabored. Not in any distress, on room air. Currently infusing IV zosyn at 25mL/hr. No acute changes overnight. All needs attended. Safety measures maintained. Will endorse LUCIANA to oncoming RN
--- NOTE | 2019-01-02 07:09 | NUR ---
RN OPENING NOTE PT WAS RECEIVED IN BED AT LOWEST AND LOCKED POSITION WITH SIDE RAILS UP X2, A/O 4 BREATHING EVEN AND UNLABORED ON RA, AMBULATORY, NO S/S OF ANY DISTRESS OR PAIN AT THIS TIME, IV IS PATENT AND INTACT WITH IVF RUNNING, SAFETY PRECAUTIONS IN PLACE, CALL LIGHT WITHIN REACH, WILL MONITOR PT ACCORDINGLY
[2019-01-02 08:00] VITALS: BP 122/69
[2019-01-02] MEDS: DOCUSATE SODIUM 100 MG CAPSULE PO SCH ×2 (08:00→16:09)
[2019-01-02] MEDS: NEXIUM 40 MG VIAL IV SCH (08:00)
--- NOTE | 2019-01-02 09:50 | NUR ---
RN NOTE PATIENT COMPLAINING OF PAIN AND DISTURBANCE ON RIGHT AC IV. IV WAS REMOVED DUE TO DISCOMFORT AND NEW IV WAS INSERTED IN LEFT FA #18 AT THIS TIME
[2019-01-02 16:00] VITALS: BP 126/70
--- NOTE | 2019-01-02 18:12 | NUR ---
RN CLOSING NOTE PT IN BED AT LOWEST AND LOCKED POSITION WITH SIDE RAILS UP X2, A/O 4 BREATHING EVEN AND UNLABORED ON RA, AMBULATORY, NO S/S OF ANY DISTRESS OR PAIN AT THIS TIME, IV IS PATENT AND INTACT WITH IVF RUNNING, SAFETY PRECAUTIONS IN PLACE, CALL LIGHT WITHIN REACH, ALL NEEDS ATTENDED TO, WILL ENDORSE TO NIGHT RN FOR LUCIANA.
--- NOTE | 2019-01-02 19:10 | NUR ---
MS/RN NOTES RECEIVED PT. SITTING UP IN BED. PT. IS AWAKE, ALERT AND ORIENTED X4. BREATHING EVEN AND UNLABORED ON ROOM AIR. NO SOB, RESPIRATORY DISTRESS OR COMPLAINTS OF PAIN NOTED AT THIS TIME. PT. WITH LEFT FOREARM 18 GAUGE PERIPHERAL IV PRESENT, PATENT AND INTACT ADMINISTERING TO PT. NS @ 75 ML/HR. PT. WITH FAMILY MEMBERS PRESENT AT BEDSIDE. BED LOCKED AND IN LOWEST POSITION, SIDE RAILS UP X2, CALL LIGHT WITHIN REACH, WILL CONTINUE TO MONITOR.
[2019-01-02 20:00] VITALS: BP 123/56
[2019-01-02] MEDS ORDERED: METR500T PO (21:57)
[2019-01-02] MEDS ORDERED: LEVO500T75 PO (21:57)
[2019-01-03] MEDS: PIPERACILLIN /TAZOBACTAM 3.375 G in IV D5W 100 ML IV SCH ×2 (05:38→12:00)
--- NOTE | 2019-01-03 07:15 | NUR ---
MS RN OPENING NOTES RECEIVED PT IN BED, AWAKE, A/O X4. PT TOLERATING RA, WITH NO ACUTE RESPIRATORY DISTRESS NOTED. PT DENIES ANY PAIN OR DISCOMFORT AT THE MOMENT. PT DENIES ANY QUESTIONS OR CONCERNS AT THIS TIME. IVF NS AT 75 ML/HR TO LFA G18, INTACT AND FLUID INFUSING WELL. PT KEPT COMFORTABLE. CALL LIGHT KEPT WITHIN REACH. BED IN LOWEST, LOCKED POSITION WITH SR X3. WILL CONTINUE PLAN OF CARE.
--- NOTE | 2019-01-03 07:45 | NUR ---
MS/RN NOTES PT. IS LYING IN BED RESTING. BREATHING EVEN AND UNLABORED ON ROOM AIR. NO SOB, RESPIRATORY DISTRESS OR COMPLAINTS OF PAIN NOTED AT THIS TIME AND THROUGHOUT SHIFT. PT. WITH LEFT FOREARM 18 GAUGE PERIPHERAL IV PRESENT, PATENT AND INTACT ADMINISTERING TO PT. NS @ 75 ML/HR. ALL PT. NEEDS MET.BED LOCKED AND IN LOWEST POSITION, SIDE RAILS UP X2, CALL LIGHT WITHIN REACH, WILL ENDORSE TO DAYSHIFT NURSE FOR CONTINUITY OF CARE.
[2019-01-03 08:06] VITALS: BP 105/48
[2019-01-03] MEDS: DOCUSATE SODIUM 100 MG CAPSULE PO SCH (08:33)
[2019-01-03] MEDS: NEXIUM 40 MG VIAL IV SCH (08:34)
--- NOTE | 2019-01-03 16:22 | NUR ---
MS SAND MIXER OPERATOR NOTES PT TO DISCHARGE TO HOME. ACCOMPANIED BY SPOUSE AND FAMILY. PT A/O X4. AMBULATORY. PT TOLERATING RA, WITH NO ACUTE RESPIRATORY DISTRESS NOTED. PT DENIES ANY PAIN OR DISCOMFORT AT THIS TIME. DISCHARGE PAPERS REVIEWED AND SIGNED BY PT'S SPOUSE. ALL BELONGINGS WITH THE PT. PRESCRIPTION OF ANTIBIOTICS GIVEN TO PT, SPOUSE AT BED SIDE AWARE WELL. PIV TO LFA REMOVED, APPLIED DRY DRESSING. ALL NEEDS AND CARE ATTENDED. PT LEFT THE UNIT AT 1610, ESCORTED BY STEAMTABLE ATTENDANT RAILROAD TO THE LOBBY, ACCOMPANIED BY SPOUSE AND DAUGHTER. CN/FADI AND HOSPITALIST/CARBON BRUSHER ASSEMBLER/CC AWARE OF DISCHARGE.
--- NOTE | 2019-01-03 16:25 | NUR ---
MS RN NOTES SKIN INTACT. NO PICTURES TAKEN. PT ALSO STATED THE SCAR ON HIS ARM, NO NEED TO TAKE PICTURE OF IT AND THEY'RE IN A HURRY TO GET HOME. RN EXPLAINED FACILITY PROTOCOL. INSIST TO REFUSE.
== END 2019-01-03 16:15 | disposition home or self-care (01) | DRG 244 ==
LOC: ER 17:08 → MED 21:07
PROVIDERS: ADMIT Nurse Practitioner Acute Care; ATTEND Nurse Practitioner Acute Care
DX: K57.20 Diverticulitis of large intestine with perforation and abscess without bleeding (principal); K21.9 Gastro-esophageal reflux disease without esophagitis
CPT/HCPCS: 36415; 80048-TC; 80061-TC; 80076-TC; 81000-TC; 83690-TC; 83735-TC; 84100-TC; 84484-TC; 85025-TC; 87040-TC; 87081-TC; C9113; G0378; J2270; J2405; J2543; J7030; J7050; J7060; Q9967